=== PATIENT | female | born 1955 | race Caucasian/White ===

== ENCOUNTER 2023-02-04 14:34 | Outpatient (CLI) | payer MEDICARE | END 2023-02-04 14:35 | disposition home or self-care (01) | LOC: CSHMAMMO 14:34 | PROVIDERS: ATTEND Obstetrics & Gynecology | DX: Z13.820 Encounter for screening for osteoporosis (principal); M85.852 Other specified disorders of bone density and structure, left thigh | CPT/HCPCS: 77080 ==

== ENCOUNTER 2024-09-21 10:49 | Outpatient (CLI) | payer MEDICARE | END 2024-09-21 10:50 | disposition home or self-care (01) | LOC: CSHRAD 10:49 | PROVIDERS: ATTEND Family Medicine | DX: M47.812 Spondylosis without myelopathy or radiculopathy, cervical region (principal) | CPT/HCPCS: 72040 ==